=== PATIENT | female | born 1955 | race Two or more races ===

== ENCOUNTER 2023-08-07 07:35 | Outpatient (CLI) | payer OTHER | END 2023-08-07 07:37 | disposition home or self-care (01) | LOC: NUCLEAR 07:35 | PROVIDERS: ATTEND Internal Medicine | DX: I11.9 Hypertensive heart disease without heart failure (principal); E66.2 Morbid (severe) obesity with alveolar hypoventilation; I73.9 Peripheral vascular disease, unspecified; I20.89 Other forms of angina pectoris | CPT/HCPCS: 78452; 93017; A9500; J0153 ==